=== PATIENT | male | born 1950 | race Caucasian/White ===

== ENCOUNTER 2018-02-17 17:51 | Inpatient (IN) | payer OTHER ==
[2018-02-17] MEDS ORDERED: DIAZEPAM 5 MG/ML 1 ML SYR IVP ONE (18:02)
--- NOTE | 2018-02-17 18:05 | EDPHY ---
H & P Time Seen by Provider: 02/17/18 17:57 HPI/ROS: CHIEF COMPLAINT: Left lower back/gluteus pain HISTORY OF PRESENT ILLNESS: The patient is a 67-year-old man with a history of chronic low back pain who tripped and fell about an hour ago. He landed on his right side but is complaining of severe left gluteal pain and states that his hip is stuck in a flexed position. No knee or ankle pain. No head or neck pain. 911 was called and they administered ketamine with moderate improvement. Normal vital signs. He denies other injuries. He reports a history of sacroiliac pain similar to this but not as severe several years ago that improved with chiropractor treatment. Severity: Severe Modifying factors: Pain with any movement of his left hip REVIEW OF SYSTEMS: Constitutional: denies: chills, fever, recent illness, recent injury EENTM: denies: blurred vision, double vision, nose congestion Respiratory: denies: cough, shortness of breath Cardiac: denies: chest pain, irregular heart rate, lightheadedness, palpitations Gastrointestinal/Abdominal: denies: abdominal pain, diarrhea, nausea, vomiting, blood streaked stools Genitourinary: denies: dysuria, frequency, hematuria, pain Musculoskeletal: denies: joint pain, muscle pain Skin: denies: lesions, rash, jaundice, bruising Neurological: denies: headache, numbness, paresthesia, tingling, dizziness, weakness Hematologic/Lymphatic: denies: blood clots, easy bleeding, easy bruising Immunologic/allergic: denies: HIV/AIDS, transplant 10 systems reviewed and negative except as noted EXAM: GENERAL: Well-appearing, well-nourished and in no acute distress. HEAD: Atraumatic, normocephalic. EYES: Pupils equal round and reactive to light, extraocular movements intact, sclera anicteric, conjunctiva are normal. ENT: TMs normal, nares patent, oropharynx clear without exudates. Moist mucous membranes. NECK: Normal range of motion, supple without lymphadenopathy or JVD. LUNGS: Breath sounds clear to auscultation bilaterally and equal. No wheezes rales or rhonchi. HEART: Regular rate and rhythm without murmurs, rubs or gallops. ABDOMEN: Soft, nontender, normoactive bowel sounds. No guarding, no rebound. No masses appreciated. BACK: No CVA tenderness, no spinal tenderness, step-offs or deformities EXTREMITIES: Pain with movement of left hip. Pain is primarily in the left gluteus region. No deformities. Holds left hip in flexed position. Normal pulses and sensation distally. NEUROLOGICAL: Cranial nerves II through XII grossly intact. Normal speech. 5/ 5 strength, normal movement in all extremities, normal sensation, normal reflexes PSYCH: Normal mood, normal affect. SKIN: Warm, dry, normal turgor, no visible rashes or lesions. Source: Patient, Family, EMS Exam Limitations: No limitations - Medical/Surgical History Hx Asthma: No Hx Chronic Respiratory Disease: No Hx Diabetes: No Hx Cardiac Disease: No Hx Renal Disease: No Hx Cirrhosis: No Hx Alcoholism: No - Family History Significant Family History: No pertinent family hx - Social History Smoking Status: Never smoked Alcohol Use: Sober Drug Use: None Constitutional: Initial Vital Signs Temperature (C) 36.7 C 02/17/18 17:58 Heart Rate 96 02/17/18 17:58 Respiratory Rate 18 02/17/18 17:58 Blood Pressure 140/94 H 02/17/18 17:58 O2 Sat (%) 99 02/17/18 17:58 O2 Delivery Mode Room Air Allergies/Adverse Reactions: No Known Allergies Allergy (Unverified 02/17/18 18:03) Home Medications: Medication Instructions Recorded NK [No Known Home Meds] 02/17/18 Medical Decision Making - Diagnostics Imaging: Discussed imaging studies w/ house calls nurse practitioner Radiologist Procedures: Procedure: Procedural sedation. Indication: Severe pain in the imaging. A pre-sedation evaluation was completed on the patient just prior to the procedure. Patient is an appropriate candidate for procedural sedation with a normal 3-3-2 rule assessment and a Mallampati airway score of class 1-4. The risks of the sedation were discussed including but not limited to dysrhythmia, need for airway intervention or general anesthesia, disability, ; and verbal consent obtained. A timeout was observed and patient's identity confirmed. The patient was sedated with ketamine 150 mg. The patient was monitored with continuous pulse oximetry, capnography, and or manager. There were no complications and no significant hypoxemia. I remained at the bedside for the sedation. The total time I spent in the procedural sedation was 16 minutes. ED Course/Re-evaluation: 7:20 p.m. the patient appears to have a femoral neck fracture as well so acetabular fracture. I discussed case Dr. Heath Kaye who is here to consult. Discussed the case with Dr. Peralta who will admit. 8:[address] scan for surgical planning be because the x- ray imaging is not at adequate angle because the patient's severe pain and inability to lay flat. CT scan can also not be done with him lying on his side. We elected to procedures sedate him for imaging. He was given ketamine in the CT suite and then rolled his back and imaging completed. He tolerated this well. Differential Diagnosis: Partial list of the Differential diagnosis considered include but were not limited to; hip fracture, muscle strain and although unlikely based on the history and physical exam, I also considered vascular injury, neck injury, head injury. - Data Points Medications Given: Hydrocodone Bitart/Acetaminophen ([place] 5/325) 1 - 2 tab PO Q3HRS PRN PRN Reason: Pain, Moderate Able to Take PO Stop: 02/27/18 20:48 Last Admin: 02/17/18 23:23 Dose: 1 tab Sodium Chloride (Ns) 1,000 mls @ 75 mls/hr IV CONT GEMA Stop: 08/16/18 20:59 Last Admin: 02/18/18 08:45 Dose: 1,000 mls Ondansetron HCl (Zofran) 4 mg IVP Q4HRS PRN PRN Reason: Nausea/Vomiting, Can't Take PO Stop: 08/16/18 20:47 Last Admin: 02/17/18 22:00 Dose: 4 mg Oxycodone HCl (Oxycodone Ir) 5 - 10 mg PO Q3HRS PRN PRN Reason: Pain, Severe Able to Take PO Stop: 02/27/18 20:48 Last Admin: 02/18/18 13:26 Dose: 10 mg Discontinued Medications Diazepam (Valium) 5 mg IVP EDNOW ONE Stop: 02/17/18 18:03 Last Admin: 02/17/18 18:05 Dose: 5 mg Hydromorphone HCl (Dilaudid) 1 mg IVP EDNOW ONE Stop: 02/17/18 18:35 Last Admin: 02/17/18 18:37 Dose: 1 mg Hydromorphone HCl (Dilaudid) 1 mg IVP EDNOW ONE Stop: 02/17/18 20:58 Last Admin: 02/17/18 21:00 Dose: 1 mg Sodium Chloride (Ns) 1,000 mls @ 0 mls/hr IV EDNOW ONE; Wide Open PRN Reason: Protocol Stop: 02/17/18 20:31 Last Admin: 02/17/18 20:31 Dose: 1,000 mls Ketamine HCl (Ketamine) 150 mg IVP EDNOW ONE Stop: 02/17/18 20:33 Last Admin: 02/17/18 20:34 Dose: 150 mg Departure - Departure Disposition: [facility] In[facility] Acute Clinical Impression: Displaced fracture of left femoral neck Condition: Fair
[2018-02-17] MEDS ORDERED: HYDROmorphONE/DILAUDID 1 MG/ML INJ IVP ONE ×2 (18:34→20:57)
[2018-02-17] MEDS ORDERED: HYDROmorphONE/DILAUDID 1 MG/ML INJ ONE ×2 (18:40→20:53)
[2018-02-17] MEDS ORDERED: PROPOFOL 200 MG/20 ML VIAL ONE (20:08)
[2018-02-17] MEDS ORDERED: KETAMINE 200 MG/20 ML VIAL ONE (20:08)
[2018-02-17] MEDS ORDERED: NS 1,000 ML IV ONE (20:30)
[2018-02-17] MEDS ORDERED: KETAMINE 200 MG/20 ML VIAL IVP ONE (20:32)
[2018-02-17] MEDS ORDERED: ONDANSETRON DISINTEGRATING 4 MG TAB PO PRN (20:48)
[2018-02-17] MEDS ORDERED: ONDANSETRON 4 MG/2 ML VIAL IVP PRN (20:48)
[2018-02-17] MEDS ORDERED: HYDROmorphONE/DILAUDID 1 MG/ML INJ IVP PRN (20:49)
[2018-02-17] MEDS ORDERED: ACETAMINOPHEN 325 MG TAB PO PRN (20:49)
--- NOTE | 2018-02-17 21:29 | GHP ---
DATE OF ADMISSION: 02/17/2018 CHIEF COMPLAINT: Fall, and leg pain. HISTORY OF PRESENT ILLNESS: This is a 67-year-old, healthy man who presents after a fall. When I am seeing him, he has just received ketamine for a CT scan, and is somewhat confused. He is able to an swer some questions, and his partner answers some questions for him. He apparently was taking the co [place]post out to the back [place], when he turned around and fell, landing on his left hip. He was unable to stand. He thus presented to the ED in severe pain. Notably, he is able to walk for an hour witho ut getting short of breath. He has been more active over the last year. He denies ever having had a heart attack to me. PAST MEDICAL/SURGICAL HISTORY: 1. Cholecystectomy. 2. Thoracic back pain. MEDICATIONS: Please see medication reconciliation. ALLERGIES: No known drug allergies. FAMILY HISTORY: Reviewed and noncontributory. SOCIAL HISTORY: Does not drink. He quit smoking tobacco. He does smoke marijuana. REVIEW OF SYSTEMS: A 10-point review of systems is unable to be conducted, given the patient's curre nt condition. PHYSICAL EXAM: VITAL SIGNS: Blood pressure 188/107, heart rate 105, respiration rate 18, saturating 99% on a 15 L non-rebreather. Temperature 36.7. GENERAL: Mr. Moreno is an uncomfortable-appearing man, lying on his back, moaning. HEENT: Shows him to have a face mask, as well as a nasal cannula in place. CARDIOVASCULAR: Shows regular rate and rhythm. No murmurs, rubs, or gallops. PULMONARY: Shows lungs are clear to auscultation bilaterally. ABDOMEN: Soft, nontender, nondistended. SKIN: Shows no rash. : Shows no Diaz. NEUROLOGIC: Shows him to be somewhat confused, though he jus t received ketamine. PSYCHIATRIC: Exam is unobtainable. EXTREMITIES: Shows left extremity to be s hortened and externally rotated. He does have a palpable dorsalis pedis pulse. LABORATORY DATA: I have ordered labs, but they are pending at this time. DATA: 1. Discussed this with Dr. Dudley, will admit to med/surg with an Orthopedic consult. 2. Femur x-ray shows presumed left femoral neck fracture. Suboptimally visualized. IMPRESSION AND PLAN: Left hip fracture: Dr. Bonds with orthopedics has been consulted, suspect he will likely need surgery. He ate at 4:00 p.m.; I am unsure exactly the timing on surgery at this po int. He is extremely uncomfortable right now. He has not had an EKG; however, he is able to attain formats assessed by RCRI criteria. He is a reasonable risk for surgery, and this is a somewhat urgen t surgery as well. Recommend he proceed. I have ordered labs, as well as EKG for further evaluation. /[id number]/MODL
[2018-02-17] MEDS: NS 1,000 ML IV SCH (21:31)
[2018-02-17 21:55] LABS: PLATELET COUNT 181 10^3/uL (150-400)
[2018-02-17] MEDS: HYDROCODONE/APAP 5/325 TAB PO PRN ×2 (22:01→23:23)
[2018-02-18] MEDS: oxyCODONE IR 5 MG TAB PO PRN ×5 (02:27→17:55)
[2018-02-18 05:53] LABS: PLATELET COUNT 164 10^3/uL (150-400)
--- NOTE | 2018-02-18 07:10 | GCON ---
I was asked to see and evaluate the patient by the emergency room of [facility]. CHIEF COMPLAINT: Left hip pain. HISTORY OF PRESENT ILLNESS: The patient was moving heavy objects in his yard when he sustained a fal l onto the left hip with immediate pain, deformity and inability to walk on the left leg. He has sin ce really been unable to move his leg, which has been stuck in an internally rotated and shortened po sition. PHYSICAL EXAMINATION: SKIN: Skin overlying the hip is clean, dry and intact. MUSCULOSKELETAL: Ran ge of motion of the left hip is deferred. He is grossly neurologically intact to left foot and ankle , but it is severely limited by the patient's pain and level of distress. He has grossly normal vasc ular and sensory examination. IMAGING: I reviewed images, which include multiple views of the pelvis, left hip, and femur. Overal l, the left femur is grossly intact without evidence of fracture. There appears to be a left femoral neck fracture, but it cannot be further assessed at this point because there is quite a bit of rotat ion in the images as the patient is unwilling or unable to rotate his pelvis for proper imaging. IMPRESSION: Left femoral neck fracture. PLAN: At this point, since management of left hip depend heavily on the patient's fracture pattern, I have asked for a CT scan as the patient is unable to really position himself properly. Following t he CT scan, will have further information on the most appropriate management. At this point, it is p robably going to be a total hip replacement versus a closed reduction percutaneous pinning of the lef t proximal femur. At this time, I will defer that conversation with the patient until we have furthe r information. Our final recommendations are that the patient be admitted. He will be managed by medical service at this point and we will be happy to consult. The patient will more than likely be ready for an opera tion tomorrow, one of the two operations that I mentioned earlier. I asked that he be n.p.o. after m idnight and that fluids to be started after midnight. He can eat and drink this evening before midni ght. All questions have been answered with the emergency room physician and I will follow further wi th this patient with additional recommendations. Thank you again for this consultation. /[id number]/MODL
--- NOTE | 2018-02-18 08:41 | GPROG ---
I had a conversation with Esdras this morning. Overall, he is in good spirits. We went over the plan to do an ORIF of his left hip. He expressed understanding of all the risks, benefits, and alternatives of the procedure, and would like to move forward with operative management. We will maintain him n.p.o. for today. It is likely, we will get this case done around 5:00 o'clock p.m. Just in case, we have to move him up and do it sooner, I think it is, unfortunately, the best, and just maintain the patient n.p.o. until then. /[id number]/MODL MTDD
[2018-02-18] MEDS: NS 1,000 ML IV SCH (08:45)
--- NOTE | 2018-02-18 08:52 | GPROG ---
I have had a chance to review the pelvis CT performed by the emergency room. There is no evidence of fracture in the acetabulum. However, there does appear to be an intertrochanteric fracture of the l eft proximal femur. This appears to be extracapsular in nature. ASSESSMENT AND PLAN: Based on the location of this fracture, I think it is very amenable to open red uction and internal fixation. I will discuss this further with the patient. We will set him up late r today for a DHS versus intramedullary device to provide tendon fixation. /[id number]/MODL
--- NOTE | 2018-02-18 11:07 | PDMN ---
Medical Necessity Medical necessity: Pt meets INPT criteria per and [facility] S615 Hip Fracture, Open Repair (pending ORIF of hip; est. LOS >2 MN).
--- NOTE | 2018-02-18 11:29 | HOSPPROG ---
Hospitalist Progress Note Assessment/Plan: 67 yo M w hip fracture preop eval: no FH CAD no exertional sx, > 4 mets at baseline to OR without further intervention check preop ekg for completeness osteoporosis: a bit young for hip fracture in fall from standing check tsh, pth, albumin, calcium pcp is nena Lafleur hip fracture: to OR this PM pain: add sceduled tylenol proph: lmwh- start 02/19 dispo: inpt Subjective: paIN CONTROLLED WHEN NOT MOVING. surgery this PM Objective: Vital Signs Temp Pulse Resp BP Pulse Ox 36.6 C 74 15 135/79 H 94 02/18/18 07:34 02/18/18 07:34 02/18/18 07:34 02/18/18 07:34 02/18/18 07:34 Laboratory Results 02/18/18 05:08 02/18/18 05:08 02/17/18 02/18/18 02/19/18 05:59 05:59 05:59 Intake Total 1600 Output Total 600 Balance 1000 - Physical Exam Constitutional: no apparent distress, appears nourished Eyes: PERRL, anicteric sclera Ears, Nose, Mouth, Throat: moist mucous membranes, hearing normal Cardiovascular: regular rate and rhythym, no murmur, rub, or gallop Respiratory: no respiratory distress, no rales or rhonchi Gastrointestinal: normoactive bowel sounds, soft, non-tender abdomen Genitourinary: No lechuga in urethra Skin: warm, normal color Musculoskeletal: full muscle strength, no muscle tenderness Neurologic: AAOx3, sensation intact bilaterally Psychiatric: interacting appropriately ICD10 Worksheet Patient Problems: Problems Problem Status Onset Displaced fracture of left femoral neck Acute
[2018-02-18] MEDS ORDERED: ACETAMINOPHEN 325 MG TAB PO SCH (14:00)
[2018-02-18] MEDS: ACETAMINOPHEN 500 MG TAB PO SCH ×2 (15:33→22:16)
[2018-02-18] MEDS ORDERED: LR 1,000 ML IV ONE (18:15)
[2018-02-18] MEDS ORDERED: CEFAZOLIN 2 GM/DEXTROSE/100 ML BAG IV ONE (18:36)
[2018-02-18] MEDS ORDERED: TRANEXAMIC ACID 1,000 MG in NS 100 ML IV ONE (18:45)
[2018-02-18] MEDS ORDERED: BUPIVACAINE/EPI 0.5% 30 ML SDV ONE (18:50)
--- NOTE | 2018-02-18 18:51 | PDANEPAE ---
ANE History of Present Illness here for TFN ANE Past Medical History - Cardiovascular History Hx Hypertension: No Hx Arrhythmias: No Hx Chest Pain: No Hx Coronary Artery / Peripheral Vascular Disease: No Hx CHF / Valvular Disease: No Hx Palpitations: No - Pulmonary History Hx COPD: No Hx Asthma/Reactive Airway Disease: No Hx Recent Upper Respiratory Infection: No Hx Oxygen in Use at Home: No Hx Sleep Apnea: No Sleep Apnea Screening Result - Last Documented: Positive - Endocrine History Hx Diabetes: No Hypothyroid: No Hyperthyroid: No Obesity: no - Renal History Hx Renal Disorders: No - Chronic Pain History Chronic Pain: Yes ANE Review of Systems Review of systems is: negative Review of Systems: - Exercise capacity Exercise capacity: >=4 METS ANE Patient History - Allergies Allergies/Adverse Reactions: No Known Allergies Allergy (Unverified 02/17/18 18:03) - Home Medications Home medications: home medication list seen and reviewed Home Medications: NK [No Known Home Meds] 02/17/18 [Last Taken Unknown] - NPO status NPO Status: no food or drink >8 hours NPO Since - Liquids (Date): 02/17/18 NPO Since - Liquids (Time): 16:00 NPO Since - Solids (Date): 02/17/18 NPO Since - Solids (Time): 16:00 - Anes Hx Anes Hx: no prior problems - Smoking Hx Smoking Status: Never smoked - Alcohol Use Alcohol Use: Sober ANE Labs/Vital Signs - Labs Result Diagrams: 02/18/18 05:08 02/18/18 05:08 - Vital Signs Vital Signs: reviewed preoperatively; see RN documention for details Blood Pressure: 116/89 Heart Rate: 88 Respiratory Rate: 18 O2 Sat (%): 94 Height: 172.72 cm Weight: 68.946 kg ANE Physical Exam - Airway Neck exam: FROM Mallampati Score: Class 1 - Pulmonary Pulmonary: no respiratory distress - Cardiovascular Cardiovascular: regular rate and rhythym - ASA Status ASA Status: II ANE Anesthesia Plan Anesthesia Plan: GA w LMA
[2018-02-18] MEDS ORDERED: fentaNYL 100 MCG/2 ML INJ ONE ×3 (18:58→20:56)
[2018-02-18] MEDS ORDERED: PROPOFOL/EMULSION 500 MG/50 ML BOTTLE IV ONE (18:59)
[2018-02-18] MEDS ORDERED: oxyCODONE IR 5 MG TAB PO PRN (19:20)
[2018-02-18] MEDS ORDERED: NALOXONE HCL 0.4 MG/ML INJ IVP PRN (19:20)
[2018-02-18] MEDS ORDERED: fentaNYL 100 MCG/2 ML INJ IVP PRN (19:20)
[2018-02-18] MEDS ORDERED: HYDROmorphONE/DILAUDID 2 MG/ML INJ IVP PRN (19:20)
[2018-02-18] MEDS ORDERED: ONDANSETRON 4 MG/2 ML VIAL IVP PRN (19:20)
[2018-02-18] MEDS ORDERED: LR 500 ML IV PRN (19:20)
[2018-02-18] MEDS ORDERED: ALBUTEROL 3 ML DEYVIAL IH PRN (19:20)
[2018-02-18] MEDS ORDERED: PROMETHAZINE HCL 25 MG/ML INJ IVP PRN (19:20)
[2018-02-18] MEDS ORDERED: NS 500 ML IV PRN (19:20)
[2018-02-18] MEDS ORDERED: DEXAMETHASONE 4 MG/ML VIAL IVP PRN (19:20)
--- NOTE | 2018-02-18 20:37 | SUROPNOTE ---
[facility] Operative Report - Surgery Date: 02/18/18 Pre-operative Diagnosis: Left extracapsular hip fracture Post-operative Diagnosis: Same Procedure: Left hip open reduction and internal fixation with an intramedullary device Surgeon: Juan Bonds MD Remote Control Mirror Installer: Tana Gee PA-C Anesthesia: General endotracheal anesthesia Findings: As expected Estimated Blood Loss: 200mL Drains: None Specimens: None Complications: None Condition: Transferred to PACU in stable condition. Implants: DePuy Intramedullary nail, size 11mm x 180mm (short), 100mm helical blade, 38mm x 3.5mm distal interlocking screw Indications: The patient was seen and examined by me in the hospital, and diagnosed with an intertrochanteric hip fx. I have explained all options of treatment for the patient, and the patient has elected to proceed with operative management. I have explained all risks, benefits, and alternatives of the proposed procedure. The risks that we have discussed include , blindness, nerve damage, infection, failure of surgery to alleviate pre-operative symptoms, and possible need for further operation. In addition to the aforementioned procedure, I also discussed with the patient that other procedures may be indicated during the course of surgery. The patient expressed understanding of this. Pre-operative: The proposed incision site was marked in the pre-operative holding area by me. The patient was then taken to the operating room in stable condition. Following smooth induction of general anesthesia, the patient was positioned on a fracture table with all down surfaces well-padded. The contralateral leg was placed into a well-leg delaney with an SCD boot and was well-padded. The patient was then prepped and draped in the usual sterile fashion. Pre-operative antibiotics were administered within one hour of the incision. Tranexamic acid was used to minimize bleeding. A surgical timeout was performed, and all parties involved in the procedure were in agreement on the correct patient, location, and procedure to be performed. Closed reduction: Using fluoroscopic guidance, traction, rotation, and abduction/adduction were used to obtain an acceptable closed reduction of the hip. Once an acceptable reduction was obtained by both AP and lateral radiographs, attention was turned to open reduction. Approach and opening reamer: All of the following steps were confirmed using intermittent fluoroscopic images as needed. A standard lateral approach to the hip was taken. Based on palpable ASIS and greater trochanteric landmarks, a 4cm incision was made in the skin parallel to the femur and ending just proximal to the greater trochanter. The fascia was incised in line with this. Electrocautery was used to coagulate all bleeding vessels. A guidewire was introduced through the abductors and onto the greater trochanter. This was then gently malleted into place to the level of the lesser trochanter. Placement was confirmed to be at the midpoint of the greater trochanter in the lateral plane as well. An opening reamer was then passed into the greater trochanter and all instruments were removed. Nail introduction: A small nail was then selected and placed into the femur Proximal helical blade: Using the proximal screw locking guide, a triple sleeve was attached and an incision was made through the proposed screw trajectory. The fascia was also incised at this level. A guide wire was then passed through the sleeve and onto the lateral border of the femur. It was advanced on all views to minimize total tip-apex distance. It was then measured and an appropriately-sized helical blade was selected. An opening reamer was used over the guidewire to create a portal in the lateral femoral cortex and was removed. A reamer was used over the guidewire to create a channel for the lag screw. The lag screw was then advanced over the guidewire and into place in the femoral head. The nail was then locked at the proximal end. Distal interlocking screws: Using the guide, a standard single 38mm screw was placed through the distal interlocking screw hole. The skin and fascia were incised in line with this. Screw tract was then drilled bicortically, and the appropriately sized distal interlocking screw was placed through the nail in the static hole. Final radiographs were taken in two planes along the entirety of the femur; fracture reduction and instrumentation placement were deemed to be acceptable. Closure: The field was irrigated copiously with sterile saline. #1 vicryl suture was used to repair the fascia, 2-0 monofilament interrupted sutures were used to repair the dermal layer, and jorden were used to close the skin. Sterile island dressings were applied over the surgical incisions. A surgical count was performed before initiation of closure and following the procedure, and all were correct. I was present for the entire procedure. laundry assistant: A cardiovascular surgical tech was deemed necessary for surgical hemostasis, retraction, and implant management. Recovery: The patient was extubated uneventfully in the operating room. The patient was taken to the recovery room in stable condition. Sequential compression devices for VTE prophylaxis were applied to the patients lower extremities, and were ordered to be used while the patient was non-ambulatory. Chemical VTE prophylaxis was started post-operatively. Juan Bonds MD
[2018-02-18] MEDS: HYDROCODONE/APAP 5/325 TAB PO PRN (23:00)
--- NOTE | 2018-02-18 23:02 | POSTANESTH ---
Post Anesthetic Evaluation Cardiovascular Status: Normal, Stable Respiratory Status: Normal, Stable Level of Consciousness/Mental Status: Can Participate in Eval Pain Control: Adequate, Prn Tx Ordered Nausea/Vomiting Control: Adequate, Prn Tx Ordered Complications Possibly Related to Anesthesia: None Noted
[2018-02-19] MEDS: ceFAZolin 2 GM/DEXTROSE 100 ML IV SCH ×2 (03:15→11:32)
[2018-02-19] MEDS: ACETAMINOPHEN 500 MG TAB PO SCH ×3 (05:22→23:53)
[2018-02-19 05:33] LABS: PLATELET COUNT 156 10^3/uL (150-400)
[2018-02-19] MEDS: oxyCODONE IR 5 MG TAB PO PRN ×4 (09:41→17:36)
[2018-02-19] MEDS: ENOXAPARIN 40 MG/0.4 ML SYR SC SCH (09:42)
--- NOTE | 2018-02-19 12:20 | CPEKG ---
Test Reason : OPEN Blood Pressure : / mmHG Vent. Rate : 073 BPM Atrial Rate : 073 BPM P-R Int : 155 ms QRS Dur : 090 ms QT Int : 371 ms P-R-T Axes : 005 -16 006 degrees QTc Int : 409 ms Sinus rhythm Left ventricular hypertrophy Confirmed by Elver Holloway ([id number]) on 02/19/2018 12:20:03 PM Referred By: Confirmed By:Elver Holloway
--- NOTE | 2018-02-19 13:24 | GPROG ---
I saw the patient on my morning rounds today and have personally seen and examined him and gone over the plan of care with the patient's nurse. PHYSICAL EXAMINATION: On physical exam, the patient's dressings are clean, dry, and intact and left in place. His legs are of equal length and rotation. He has no sensory, motor, or vascular deficits distally. IMPRESSION: Postop day 1 status post left hip open reduction and internal fixation with short intram edullary nail. ASSESSMENT AND PLAN: Moving forward, from my perspective, the patient can be discharged whenever he is medically cleared. He should see me in the office in 2 weeks for removal of jorden along the inc ision. He should be maintained on chemical deep venous thrombosis prophylaxis for a total of 1 month . The patient would like to take 1 full 325 mg aspirin tablet daily. I think that would be fine wit h me, but I will defer at this point to the medical team regarding risk stratification. All question s were answered for the patient. Please do not hesitate to contact me if I can answer any further qu estions or concerns for the medical team. Care for this patient provided by the [facility] is greatly appreciated. /[id number]/MODL
--- NOTE | 2018-02-19 13:50 | HOSPPROG ---
Hospitalist Progress Note Assessment/Plan: 67 yo M w hip fracture preop eval: no FH CAD no exertional sx, > 4 mets at baseline to OR without further intervention ekg normal (interp by me) elevated pth: calcium normal outpatient follow up osteoporosis: a bit young for hip fracture in fall from standing check tsh, pth, albumin, calcium pcp is Dr Heard i doscussed w hime hip fracture: to OR this PM pain: add sceduled tylenol proph: lmwh- start 02/19 dispo: inpt Subjective: pain well controlled Objective: Vital Signs Temp Pulse Resp BP Pulse Ox 37.2 C 94 17 137/86 H 90 L 02/19/18 11:21 02/19/18 11:21 02/19/18 11:21 02/19/18 11:21 02/19/18 11:21 Laboratory Results 02/19/18 04:40 02/19/18 04:40 02/18/18 02/19/18 02/20/18 05:59 05:59 05:59 Intake Total 1600 1430 Output Total 600 2050 Balance 1000 -620 - Physical Exam Constitutional: no apparent distress, appears nourished Eyes: PERRL, anicteric sclera Ears, Nose, Mouth, Throat: moist mucous membranes, hearing normal Cardiovascular: regular rate and rhythym, no murmur, rub, or gallop Respiratory: no respiratory distress, no rales or rhonchi Gastrointestinal: normoactive bowel sounds, soft, non-tender abdomen Genitourinary: No lechuga in urethra Skin: warm, normal color Musculoskeletal: full muscle strength, other ( no hematoma) Neurologic: AAOx3 ICD10 Worksheet Patient Problems: Problems Problem Status Onset Displaced fracture of left femoral neck Acute
--- NOTE | 2018-02-19 15:38 | ASMTCMCOM ---
CM Note CM Note Notes: CM met w/ pt for dispo planning. PT is recommending HC. OT is recommending HC w/ 24 hr supervision. CM provided pt w/ list of HC agencies. Pt reports that he wants to speak w/ his partner before making any decisions. Pt will let CM know which HC agency he wants to use. Pt reports that he lives w/ his partner and will have 24hr supervision. CM to follow. Plan: HC Date Signed: 02/19/2018 03:37 PM Electronically Signed By:JERMAINE Murphy
[2018-02-19] MEDS: METHOCARBAMOL 500 MG TAB PO PRN (19:38)
[2018-02-20] MEDS: oxyCODONE IR 5 MG TAB PO PRN ×3 (01:02→12:48)
[2018-02-20 05:02] LABS: PLATELET COUNT 155 10^3/uL (150-400)
[2018-02-20] MEDS: METHOCARBAMOL 500 MG TAB PO PRN (07:50)
[2018-02-20] MEDS: ACETAMINOPHEN 500 MG TAB PO SCH (07:50)
[2018-02-20] MEDS: ENOXAPARIN 40 MG/0.4 ML SYR SC SCH (07:51)
[2018-02-20 07:57] VITALS: BP 131/81
--- NOTE | 2018-02-20 11:48 | PDIAF ---
- Diagnosis Diagnosis: hip fracture Code Status: Full Code - Medication Management Discharge Medications: Medications to Continue on Transfer Acetaminophen [Tylenol ES 500 mg (*)] 1,000 mg PO Q8 tab 02/20/18 [Last Taken Unknown] Enoxaparin [Lovenox 40 MG (*)] 40 mg SC DAILY #25 syr 02/20/18 [Last Taken Unknown] oxyCODONE IR [Oxycodone Ir (*)] 5 - 10 mg PO Q3HRS PRN #24 tab 02/20/18 [Last Taken Unknown] Discharge Medications: Refer to the Discharge Home Medication list for PRN reason. - Orders Services needed: Home Care, Physical Therapy, Occupational Therapy Home Care Face to Face: I certify that this patient was under my care and that I had the required [id number] encounter meeting the encounter requirements on the discharge day. My findings support the fact that the patient is homebound as defined in Home Care Face to Face Continued: CMS Chapter 7 Medicare Benefits Manual 30.1.1 , The condition of the patient is such that there exists a normal inability to leave home and consequently, leaving home would require a considerable and taxing effort. Diet Recommendation: no restrictions on diet Diet Texture: Regular Texture Diet Additional Instructions: 1. take miralax every day that you are taking oxycodone. take it twice daily if no bm for two days 2. miralax is over the counter 3. you may start taking naproxen, 1 pill daily max, on 03/01 4. follow up w dr momin - Follow Up Care Current Providers and Referrals: Patient,NotPresent [Unknown] - As per Instructions
--- NOTE | 2018-02-20 12:10 | ASMTCMCOM ---
CM Note CM Note Notes: Pt lives independently with life partner Radha who is in the room per pt's RN. Pt fell and fractured femur. Previously pt is very active and independent. Pt to have open reduction and internal fixatio nof femur today at 1700. PT/OT therapies not yet ordered. CM needs TBD. D/C Plan: TBD. Date Signed: 02/20/2018 12:10 PM Electronically Signed By:Arelis Canas
--- NOTE | 2018-02-20 12:10 | ASMTDCNOTE ---
Case Management Discharge Discharge Order Complete? Answers: Yes Patient to Obtain Answers: via Family Medications Transportation Arranged Answers: Family/Friends Agency/Facility Transfer Answers: Yes Report Printed & Faxed to Receiving Agency Family Notified Answers: Yes Notes: in the room Discharge Comments Notes: Pt to discharge home with and be followed by [facility]. Pt aware that Family does not have a PT available until Thursday, but would still like to go with this agency. Referrals sent and agency notified. No further CM needs noted at this time. Date Signed: 02/20/2018 12:09 PM Electronically Signed By:Arelis Canas
--- NOTE | 2018-02-20 12:11 | ASMTLACE ---
ARGELIA Length of stay for Answers: 3 days current admission Acuity / Level of Answers: Yes Care: Did the patient have an inpatient admission? Comorbidities - select Answers: Opioid dependence all that apply / Chronic pain # of Emergency department Answers: 1-2 visits in the last 6 months Score: 11 Date Signed: 02/20/2018 12:10 PM Electronically Signed By:Arelis Canas
--- NOTE | 2018-02-20 12:25 | GPROG ---
I saw and evaluated the patient today at the bedside. Overall, he is doing quite well. He has been able to ambulate with pain that has been controlled on oral regimen. ASSESSMENT/PLAN: The patient can be discharged today from my perspective. Obviously I will leave th is up to the medical team and determine safety. I will see the patient back in 2 weeks' time once di lucerornoe. /[id number]/MODL
--- NOTE | 2018-02-20 12:25 | GDS ---
DISCHARGE DIAGNOSES: 1. Left femoral neck fracture. 2. Osteoporosis. 3. History of cholecystectomy. Please see admission history and physical by Dr. Peralta. The patient presented after a mechanical fall from standing, hip fracture. He went to the operating room on the first hospital day, during which he received an intramedullary nail following open reduction and internal fixation. Given his relatively young age and male stature, some labs were sent for osteoporosis. His tsh was moderately suppressed at 0.439. His PTH was high at 112, with normal calcium and phosphate. These results are indeterminate and suggestive but not diagnostic of hyperparathyroidism. I communicated with his primary care physician, Dr. Foster Heard, who will see him in followup. He was discharged home today with outpatient followup. He has received a month of Lovenox prophylaxis. /[id number]/MODL MTDD
--- NOTE | 2018-02-20 12:30 | ASDISCHSUM ---
Discharge Information Plan Status:Home with Home Health Medically Cleared to Leave:02/20/2018 Discharge Date:02/20/2018 CM D/C Disposition:Home Health Service ADT D/C Disposition: Projected Discharge Date:02/20/2018 11:00 AM Transportation at D/C:Family Discharge Delay Reason: Follow-Up Date:02/20/2018 11:00 AM Discharge Slot: Final Diagnosis:femur fracture Placement Information Referral Type:*Home Health Care Services Referral ID:[id number] Provider Name: Home Health Address 1:[address] [address] Address 2: City:[place] Selection Factors: State:[place] Referral Type:*Home Health Care Services Referral ID:[id number] Provider Name: Address 1: Phone Number: Address 2: Fax Number: City: Selection Factors: State: Patient Contact Information Contact Name:KOURTNEY Relationship:Life Partner Address:[address] [address] Work Phone: City:[place] Alternate Phone: [facility]/Zip Code:[place] [address] Email: Financial Information Financial Class:Medicare Primary Plan Desc:MEDICARE INPATIENT Primary Plan Number:[id number] Secondary Plan Desc:ASHLEYA Secondary Plan Number:[id number] Assessment Information LACE LACE Length of stay for Answers: 3 days current admission Acuity / Level of Answers: Yes Care: Did the patient have an inpatient admission? Comorbidities - select Answers: Opioid dependence all that apply / Chronic pain # of Emergency department Answers: 1-2 visits in the last 6 months Score: 11 Date Signed: 02/20/2018 12:10 PM Electronically Signed By:Arelis Canas [facility] CM Progress Note CM Note CM Note Notes: Pt lives independently with life partner Radha who is in the room per pt's RN. Pt fell and fractured femur. Previously pt is very active and independent. Pt to have open reduction and internal fixatio nof femur today at 1700. PT/OT therapies not yet ordered. CM needs TBD. D/C Plan: TBD. Date Signed: 02/20/2018 12:10 PM Electronically Signed By:Arelis Canas [facility] Progress Note CM Note CM Note Notes: CM met w/ pt for dispo planning. PT is recommending HC. OT is recommending HC w/ 24 hr supervision. CM provided pt w/ list of HC agencies. Pt reports that he wants to speak w/ his partner before making any decisions. Pt will let CM know which HC agency he wants to use. Pt reports that he lives w/ his partner and will have 24hr supervision. CM to follow. Plan: HC Date Signed: 02/19/2018 03:37 PM Electronically Signed By:JERMAINE Murphy Case Management Discharge Plan Note Case Management Discharge Discharge Order Complete? Answers: Yes Patient to Obtain Answers: via Family Medications Transportation Arranged Answers: Family/Friends Agency/Facility Transfer Answers: Yes Report Printed & Faxed to Receiving Agency Family Notified Answers: Yes Notes: in the room Discharge Comments Notes: Pt to discharge home with and be followed by [facility]. Pt aware that Family does not have a PT available until Thursday, but would still like to go with this agency. Referrals sent and agency notified. No further CM needs noted at this time. Date Signed: 02/20/2018 12:09 PM Electronically Signed By:Arelis Canas Intervention Information Intervention Type:*Incorrect Registration Date of Service:02/18/2018 11:00 AM Patient Type:Observation Staff Member:SUSIE Gutierres, Brittany Hours: Discipline: Severity: Comment:
[2018-02-20] MEDS: HYDROCODONE/APAP 5/325 TAB PO PRN (14:07)
== END 2018-02-20 14:56 | disposition home health service (06) | DRG 482 ==
LOC: OBSVTOIN 19:28 → F3N 21:11
PROVIDERS: ADMIT Student in an Organized Health Care Education/Training Program; ATTEND Student in an Organized Health Care Education/Training Program
PROC: 0QS706Z Reposition Left Upper Femur with Intramedullary Internal Fixation Device, Open Approach (ICD-10-PCS; principal; 2018-02-18 18:00)
DX: S72.002A Fracture of unspecified part of neck of left femur, initial encounter for closed fracture (principal); M81.0 Age-related osteoporosis without current pathological fracture; W01.0XXA Fall on same level from slipping, tripping and stumbling without subsequent striking against object, initial encounter; Y92.018 Other place in single-family (private) house as the place of occurrence of the external cause
CPT/HCPCS: 96374; 97161-GP; 97165-GO; 97530-GO; 97530-GP; 97535-GO; C1713; G8978-GP-CI; G8978-GP-CJ; G8979-GP-CI; G8980-GP-CI; G8987-GO-CI; G8987-GO-CK; G8988-GO-CI; G8989-GO-CI; J0690; J1170; J1650; J2405; J2704; J3010; J3360

== ENCOUNTER → 2018-04-01 | Outpatient (CLI) | payer OTHER | LOC: FIMAGING 13:10 | PROVIDERS: ATTEND Nurse Practitioner Adult Health | DX: Z13.820 Encounter for screening for osteoporosis (principal); M81.0 Age-related osteoporosis without current pathological fracture; S72.009A Fracture of unspecified part of neck of unspecified femur, initial encounter for closed fracture ==

== ENCOUNTER → 2018-08-17 | Outpatient (CLI) | payer OTHER ==
[~2018-08-17] MED LIST: IOPAMIDOL (ISOVUE 370) 100 ML BTL IV ONE
== END ==
LOC: FIMAGING 10:13
PROVIDERS: ATTEND Internal Medicine
DX: R07.9 Chest pain, unspecified (principal); J98.4 Other disorders of lung
CPT/HCPCS: 71275; Q9967; 82565-PO